=== PATIENT | male | born 1995 | race Caucasian/White ===

== ENCOUNTER 2018-08-23 14:03 | Day surgery (SDC) | payer OTHER ==
[2018-08-23] MEDS ORDERED: CEFAZOLIN SODIUM 2 GM in DEXTROSE 5%-WATER 100 ML IV PRN (15:15)
[2018-08-23] MEDS ORDERED: LIDOCAINE 2% INJ-PF (20 MG/ML) 10 ML AMPUL ONE (15:23)
[2018-08-23] MEDS ORDERED: FENTANYL CITRATE INJ/PF 100 MCG/2 ML AMPUL ONE ×2 (15:24→15:26)
[2018-08-23] MEDS ORDERED: MIDAZOLAM 2 MG/2 ML INJ ONE (15:24)
[2018-08-23] MEDS ORDERED: DEXAMETHASONE SOD PHOSPHATE INJ 4 MG/1 ML VIAL ONE (15:24)
[2018-08-23] MEDS ORDERED: ONDANSETRON HCL INJ/PF 4 MG/2 ML SDV ONE (15:24)
[2018-08-23] MEDS ORDERED: ACETAMINOPHEN 1,000 MG/100 ML RTUPB IV ONE (15:25)
[2018-08-23] MEDS ORDERED: PROPOFOL INJ 200 MG/20 ML VIAL IV ONE (15:25)
[2018-08-23] MEDS ORDERED: BUPIVACAINE HCL 0.5 % INJ/PF 30 ML SDV ONE (15:27)
[2018-08-23] MEDS ORDERED: PROMETHAZINE HCL INJ 25 MG/1 ML VIAL IV PRN ×2 (17:14)
[2018-08-23] MEDS ORDERED: ONDANSETRON HCL INJ/PF 4 MG/2 ML SDV IV PRN ×2 (17:14→17:43)
[2018-08-23] MEDS ORDERED: MEPERIDINE HCL/PF INJ 25 MG/1 ML DISP.SYRIN IV PRN (17:14)
[2018-08-23] MEDS ORDERED: MORPHINE SULFATE 10 MG/ML INJ IV PRN ×2 (17:14→17:43)
[2018-08-23] MEDS ORDERED: DIPHENHYDRAMINE HCL 50 MG/ML VIAL IV PRN (17:14)
[2018-08-23] MEDS ORDERED: FENTANYL CITRATE INJ/PF 100 MCG/2 ML AMPUL IV PRN ×3 (17:14)
--- NOTE | 2018-08-23 17:42 | Operative Report ---
Operative Report DATE OF SURGERY: 08/23/18 PREOPERATIVE DIAGNOSIS: Left thumb Siddiqui's fracture POSTOPERATIVE DIAGNOSIS: Same OPERATION: Open reduction percutaneous pinning left thumb Siddiqui's fracture SURGEON: DONN HUBBARD ANESTHESIA: GA COMPLICATIONS: None ESTIMATED BLOOD LOSS: Minimal PROCEDURE: Indication for above procedure: 22-year-old male who sustained a injury to his left thumb while skateboarding. Later had radiographs demonstrated Bennetts fracture of his right thumb with intra-articular step-off. At that point I discussed findings and treatment options and decision was made to proceed with operative intervention. Risks and benefits were explained patient verbalized understanding consented for the procedure. Procedure In Detail: Patient was seen and evaluated in the preoperative holding area. The LEFT upper extremity was initialized and marked. Patient received 2g of Ancef IV for bacterial prophylaxis. Patient was taken back to the operative room where transferred to the operative table and placed under general anesthesia. Once they were adequately anesthetized a nonsterile tourniquet was placed on the upper extremity. A surgical team debriefing was performed ensuring all instrumentation was available, the surgical procedure was discussed with possible concerns reviewed. The upper extremity was prepped with chlorhexidine and alcohol and draped in a sterile fashion. A timeout was done identifying correct patient, procedure and extremity everyone in attendance agree with this and verbalized no concerns. The extremity was exsanguinated the tourniquet was inflated to 250 mmHg. Longitudinal traction, pronation and abduction were performed while placing direct pressure in the metacarpal this did somewhat improve the fracture however there was continued evidence of intra-articular step-off. Thus a small stab incision was made along the webspace. Blunt dissection was performed a [place] elevator was placed over the volar lip fragment this was then held into position well the reduction maneuver was performed. A 0.045 K wire on oxalate was placed from the metacarpal into the intact volar fragment. An additional 0.045 K wires placed from the first metacarpal to the second metacarpal. Finally a third pin was placed from the thumb metacarpal to the index metacarpal base which provide adequate stability. K wires were then cut bent left outside the skin and a filter placed. C-arm fluoroscopy demonstrated reduction of the fracture no evidence of CMC subluxation. No evidence of intra-articular step-off or diastases. Surgical incision was closed with interrupted 4-0 nylon suture. Wound was dressed with Xeroform 4 x 4's and 10 cc of 0.5% bupivacaine without epinephrine was injected for postoperative pain control. Patient was placed in a thumb spica splint in neutral position Sponge counts, instrument counts, needle counts were correct. Patient was then awoken from anesthesia. Transferred from the operating room table to the operating room stretcher. There was no intraoperative complications patient tolerated procedure well stable to PACU. Postoperative plan: Patient followed in the office in 2 weeks. We will obtain radiographs in the splint. Patient will then be transition to a thumb spica cast will continue this for 6 weeks. 6 weeks postop we will proceed with pin removal.
[2018-08-23] MEDS ORDERED: OXYCODONE-ACETAMINOPHEN 5-325 MG TABLET PO PRN (17:43)
--- NOTE | 2018-08-23 17:43 | Discharge Summary ---
Discharge Summary (SDC) - Discharge Final Diagnosis: Left thumb Siddiqui's fracture Date of Surgery: 08/23/18 Discharge Date: 08/23/18 Condition: Good Treatment or Instructions: Schedule Follow Up w/ Dr. Emilio Martinez @ [facility] for Surgery to be seen in 10-14 days or as scheduled [place]: [place]: [place]: Ice and elevate Keep splint clean/dry/intact. If your fingers become numb please unwrap the Simone wrap but leave the splint in place, if the sensation does not return within 30 minutes please return to the emergency department. May begin finger range of motion attempting to make full fist. Please use ibuprofen (Motrin or Advil) 600-800 mg every 8 hours as needed for pain or fever DO NOT TAKE w/ TORADOL may use once TORADOL complete. You may also use acetaminophen (Tylenol) 1000 mg every 4-6 hours as needed for pain or fever. Please be aware that many medications contain acetaminophen, do not exceed a total of 1000 mg of acetaminophen every 6 hours. If ibuprofen and acetaminophen are not sufficient for your pain you may take the Percocet/Dannemora. Please be aware that the Percocet/Dannemora does contain Tylenol. Stool softener of choice when on pain medication. USE OF SXRQ-DXO-KALCLMM IBUPROFEN: Ibuprofen (Advil, Nuprin, Medipren, Motrin IB) is a medication for fever and pain control. In addition, it has anti- inflammatory effects which may be beneficial, especially in the treatment of injuries. It's best to take ibuprofen with food. Persons with ulcer disease or allergy to aspirin should notify their physician of this before taking ibuprofen. Ibuprofen can be given every four to six hours, for a total of four doses daily. Age Pain or fever dose Antiinflammatory dose 6-8 yr 200 mg (1 tab) 200 mg (1 tab) 9-11 yr 200 mg (1 tab) 200-400 mg (1-2 tab) 11-14 yr 200-400 mg (1-2 tab) 400 mg (2 tab) 15-adult 400 mg (2 tab) 600 mg (3 tab) ORAL NARCOTIC MEDICATION: You have been given a prescription for pain control. This medication is a narcotic. It's best taken with food, as nausea can result if taken on an empty stomach. Don't operate machinery or drive within six hours of taking this medication. Do not combine this medicine with alcohol, or with any medication which can cause sedation (such as cold tablets or sleeping pills) unless you get permission from the physician. Narcotics tend to cause constipation. If possible, drink plenty of fluids and eat a diet high in fiber and fruits. Please be aware that prescription narcotics also have the potential for abuse. People become addicted to these medications because of the general sense of wellbeing that they induce. This feeling along with a significant reduction in tension, anxiety, and aggression provides a stimulating seductive quality to these drugs. Once your pain is under control, we encourage you to discard your unused narcotics. Prescriptions: Oxycodone HCl/Acetaminophen [Percocet 5-325 mg Tablet] 1 tab PO Q6 PRN #25 tab PRN Reason: Discharge Diet: As Tolerated Respiratory Treatments at Home: Deep Breathing/Coughing Discharge Activity: No Lifting Over 10 Pounds, No Lifting/Push/Pulling Report the Following to Your Physician Immediately: Fever over 101 Degrees, Unusual Bleeding, Redness, Swelling, Warmth, Increased Soreness
--- NOTE | 2018-08-23 18:08 | RADIOLOGY REPORT (SQ) ---
EXAM DESCRIPTION: NO CHG FLUORO; FINGER LEFT COMPLETED DATE/TIME: 08/23/2018 5:54 pm REASON FOR STUDY: LEFT THUMB PINNING COMPARISON: None. FLUOROSCOPY TIME: 48 seconds 3 Images saved to PACS LIMITATIONS: None. PROCEDURE: Left thumb pinning FINDINGS: Images obtained from fluoro document the left thumb pinning. IMPRESSION: Left thumb pinning. Refer to operative note for further information. COMMENT: PQRS 6045F: Fluoroscopy time of the procedure is documented in the report. TECHNICAL DOCUMENTATION: JOB ID: [id number] [employer]- All Rights Reserved Reading location - IP/workstation name: [email or web address]
--- NOTE | 2018-08-23 18:08 | RADIOLOGY REPORT (SQ) ---
EXAM DESCRIPTION: NO CHG FLUORO; FINGER LEFT COMPLETED DATE/TIME: 08/23/2018 5:54 pm REASON FOR STUDY: LEFT THUMB PINNING COMPARISON: None. FLUOROSCOPY TIME: 48 seconds 3 Images saved to PACS LIMITATIONS: None. PROCEDURE: Left thumb pinning FINDINGS: Images obtained from fluoro document the left thumb pinning. IMPRESSION: Left thumb pinning. Refer to operative note for further information. COMMENT: PQRS 6045F: Fluoroscopy time of the procedure is documented in the report. TECHNICAL DOCUMENTATION: JOB ID: [id number] [employer]- All Rights Reserved Reading location - IP/workstation name: [email or web address]
[2018-08-23] MEDS ORDERED: OXYCODONE-ACETAMINOPHEN 5-325 MG TABLET PO ONE (18:20)
[2018-08-23] MEDS ORDERED: OXYCODONE-ACETAMINOPHEN 5-325 MG TABLET ONE (18:22)
[2018-08-23 19:20] VITALS: BP 124/78
== END 2018-08-23 19:20 | disposition home or self-care (01) ==
LOC: OROUT 14:03
PROVIDERS: ATTEND Orthopaedic Surgery
DX: S62.212A Bennett's fracture, left hand, initial encounter for closed fracture (principal); V00.131A Fall from skateboard, initial encounter; F17.210 Nicotine dependence, cigarettes, uncomplicated
CPT/HCPCS: 73140; 26665; C1713; J2250; J3490 ×2; J0690; J1100; J3010; J2405; J2704; J0131; 01820